=== PATIENT | male | born 1955 | race Hispanic/Latino ===

== ENCOUNTER → 2020-12-21 | Day surgery (SDC) | payer MEDICARE ==
[~2020-12-21] MED LIST: AMLODIPINE BESYL5 MG PO; BUPIVACAINE 0.25% 30ML SDV ONE; CEPHALEXIN500 M1 PEG; COREG6.25 MG PO; DEXAMETHASONE SOD PHOS INJ 4 MG/ML VIAL ONE; EPHEDRINE SULFATE INJ 50 MG/ML VIAL ONE; FENTANYL CITRATE/PF 100MCG/2 ML INJ ONE; LIDOCAINE 1% W/EPINEPHRINE 20 ML VIAL ONE; LIDOCAINE HCL 2% LOCAL INJ 5 ML SDV VIAL INJ ONE; LOSARTAN-HCTZ1 EAC2 PO; MIDAZOLAM HCL 2 MG/2 ML VIAL ONE; ONDANSETRON HCL INJ 2MG/ML 2ML 2 MG/ML VIAL ONE; PLAVIX75 MG PO; POVIDONE IODINE 0.05% 0.05 % ML PO ONE; PRAVASTATIN SOD40 MG PO; PROPOFOL IV EMULSION 10 MG/ML 20 ML VIAL ONE; SEVOFLURANE INHAL SOLN 250 ML PEN BTL ONE
[2020-12-21 13:35] VITALS: BP 114/78
== END | disposition home or self-care (01) ==
LOC: OR 08:15
PROVIDERS: ATTEND Surgery
DX: L72.0 Epidermal cyst (principal); I10 Essential (primary) hypertension; I25.10 Atherosclerotic heart disease of native coronary artery without angina pectoris; R00.1 Bradycardia, unspecified; E66.9 Obesity, unspecified; Z01.810 Encounter for preprocedural cardiovascular examination; Z01.812 Encounter for preprocedural laboratory examination; Z01.818 Encounter for other preprocedural examination; Z20.822 Contact with and (suspected) exposure to COVID-19; Z79.02 Long term (current) use of antithrombotics/antiplatelets; Z98.61 Coronary angioplasty status
CPT/HCPCS: 21930; 71046; 88304; 93005; J1100; J2001; J2250; J2405; J2704; J3010; U0002